=== PATIENT | male | born 1945 | race Caucasian/White ===

== ENCOUNTER 2024-07-01 08:47 | Emergency (ER) | payer MEDICARE ==
[2024-07-01 09:05] VITALS: RESP 20; TEMP 97.6
[2024-07-01] MEDS: BENADRYL 50 MG/ML IV ONE (09:22)
[2024-07-01] MEDS ORDERED: Pepcid 20 MG VIAL IV ONE (09:22)
[2024-07-01] MEDS ORDERED: BENADRYL 50 MG/ML ONE (09:22)
[2024-07-01] MEDS ORDERED: solu-CORTEF 250MG ONE (09:22)
[2024-07-01] MEDS: Pepcid 20 MG VIAL IV ONE (09:23)
[2024-07-01] MEDS: solu-CORTEF 250MG IV STA (09:23)
--- NOTE | 2024-07-01 09:33 | ERPHSYRPT ---
- History of Present Illness Time Seen by Provider: 07/01/24 09:18 Source: patient, family Exam Limitations: no limitations Patient Subjective Stated Complaint: PT states "Last night I started to have hives and get really itchy and this morning my lips were swelling." Triage Nursing Assessment: PT presented alert and oriented X 3, skin pwd. Pt lips swollen, red raised rash noted to abdomen, chest, and back, hips and legs Physician History: PT states "Last night I started to have hives and get really itchy and this morning my lips were swelling." Pt lips swollen, red raised rash noted to abdomen, chest, and back, hips and legs. Patient is unable to pinpoint the cause, exposure or food ingestion. Few months ago patient was diagnosed with diabetes but patient is trying to maintain his blood sugar with diet only. Patient hemoglobin A1c was 9.2 in January 2024. Timing/Duration: today Severity: moderate Associated Symptoms: denies symptoms Allergies/Adverse Reactions: No Known Drug Allergies Allergy (Verified 07/01/24 09:05) Home Medications: Losartan Potassium 50 mg [Cozaar 50 MG] 50 mg PO DAILY 07/01/24 [History] Hx Tetanus, Diphtheria Vaccination/Date Given: Yes Hx Influenza Vaccination/Date Given: Yes Hx Pneumococcal Vaccination/Date Given: Yes Immunizations Up to Date: No Travel Risk - International Travel Have you traveled outside of the country in past 3 weeks: No - Emerging Infectious Disease Are you exhibiting symptoms associated with any current EIDs: No - Review of Systems Constitutional: No Fever, No Chills Eyes: No Symptoms Ears, Nose, & Throat: Other (lip swelling) Respiratory: No Cough, No Dyspnea Cardiac: No Chest Pain, No Edema, No Syncope Abdominal/Gastrointestinal: No Abdominal Pain, No Nausea, No Vomiting, No Diarrhea Genitourinary Symptoms: No Dysuria Musculoskeletal: No Back Pain, No Neck Pain Skin: Rash Neurological: No Dizziness, No Focal Weakness, No Sensory Changes Psychological: No Symptoms Endocrine: No Symptoms All Other Systems: Reviewed and Negative - Past Medical History Pertinent Past Medical History: Yes Neurological History: No Pertinent History ENT History: No Pertinent History Cardiac History: Hypertension Respiratory History: No Pertinent History Endocrine Medical History: No Pertinent History Musculoskeletal History: No Pertinent History GI Medical History: No Pertinent History History: No Pertinent History Psycho-Social History: No Pertinent History Male Reproductive Disorders: No Pertinent History - Past Surgical History Past Surgical History: Yes Gastrointestinal: Appendectomy - Social History Smoking Status: Current every day smoker How long have you smoked: years Exposure to second hand smoke: Yes Drug Use: none - Social Determinants of Health Will the patient participate in the screening: Declined to provide - Nursing Vital Signs Nursing Vital Signs: Initial Vital Signs Temperature 97.6 F 07/01/24 08:58 Pulse Rate 110 H 07/01/24 08:58 Respiratory Rate 20 07/01/24 08:58 Blood Pressure 138/83 07/01/24 08:58 O2 Sat by Pulse Oximetry 98 07/01/24 08:58 Pain Scale Pain Intensity 0 - Physical Exam General Appearance: no apparent distress, alert Eye Exam: PERRL/EOMI, eyes nml inspection Ears, Nose, Throat Exam: normal ENT inspection, TMs normal, pharynx normal, moist mucous membranes Neck Exam: normal inspection, non-tender, supple, full range of motion Respiratory Exam: normal breath sounds, lungs clear, No respiratory distress Cardiovascular Exam: regular rate/rhythm, normal heart sounds, normal peripheral pulses Gastrointestinal/Abdomen Exam: soft, normal bowel sounds, No tenderness, No mass Back Exam: normal inspection, normal range of motion, No CVA tenderness, No vertebral tenderness Extremity Exam: normal inspection, normal range of motion, pelvis stable Neurologic Exam: alert, oriented x 3, cooperative, normal mood/affect, nml cerebellar function, nml station & gait, sensation nml, No motor deficits Skin Exam: normal color, warm, dry, rash Lymphatic Exam: No adenopathy SpO2: 97 - Course Nursing assessment & vital signs reviewed: Yes Ordered Tests: Medication Summary Discontinued Medications Generic Name Dose Route Start Last Admin Trade Name Zafarq PRN Reason Stop Dose Admin Diphenhydramine HCl 25 mg 07/01/24 09:17 Diphenhydramine Hcl 50 Mg/Ml Vial IV 07/01/24 09:18 STAT ONE Famotidine 20 mg 07/01/24 09:16 Famotidine 20 Mg/1 Vial IV 07/01/24 09:17 STAT ONE - Progress Progress: unchanged Progress Note: 07/01/24 09:42 On further history, patient has diabetes diagnosed for 5 months ago at that time hemoglobin A1c was 9.2. Patient has opted not to take any medication and control with diet. Initially patient blood sugars were running around 300 now according to his after diet change it is running in 1 5160 range. I informed and educated patient and his about diabetes control more aggressively, as patient already has a high blood pressure problem which can cause kidney damage heart damage stroke and eye damage. At this point of time they want to see stay on diet control. I advised them to follow-up with the primary care physician for further aggressive care of diabetes and blood pressure. Counseled pt/family regarding: diagnosis, need for follow-up Medical Desision Making - Independent Historian Additional History obtained from: Spouse - Diagnostic Testing Diagnostic test were ordered, analyzed, and reviewed by me: No - Risk of complications Minimal Risk: Minimal risk of morbidity - Departure Departure Disposition: Home Clinical Impression: Allergic urticaria Condition: Stable Critical Care Time: No Referrals: GARDENIA ALBARRAN MD [Primary Care Provider] - Follow up/PCP as directed Instructions: Hives, Allergic Reaction ED Additional Instructions: Discharge/Care Plan GARY CAMILO was seen on 07/01/24 in the Emergency Room. The patient was counseled regarding Diagnosis,Lab results, Imaging studies, need for follow up and when to return to the Emergency Room. Prescriptions given: Discharge Note I have spoken with the patient and/or caregivers. I have explained the patient's condition, diagnosis and treatment plan based on the information available to me at this time. I have answered the patient's and/or caregiver's questions and addressed any concerns. The patient and/or caregivers have as good understanding of the patient's diagnosis, condition and treatment plan as can be expected at this point. The vital signs have been stable. The patient's condition is stable and appropriate for discharge from the emergency department. The patient will pursue further outpatient evaluation with the primary care physician or other designated or consulting physician as outlined in the discharge instructions. The patient and/or caregivers are agreeable to this plan of care and follow-up instructions have been explained in detail. The patient and/or caregivers have received these instruction. The patient/and or caregivers are aware that any significant change in condition or worsening of symptoms should prompt an immediate return to this or the closest emergency department or call 911. GARY CAMILO was seen on 07/01/24 n the Emergency Room. At that time you were treated for an emergent condition, during your visit Laboratory, Radiology and/or other procedures may have been ordered. It is very important that you follow-up with your Primary Care Physician GARDENIA ALBARRAN within the next 24- 48 hours to review your Emergency Room visit and the final results of testing that was ordered. Some test results such as Urine Cultures, Blood Cultures, and other cultures if ordered will not be finalized for 24-48 hours. If you do not have a Primary Care Provider please call the medical records department at [phone] ext [phone] to obtain a copy of your results or you may sign into our patient portal to obtain these results by visiting us @ [email or web address] and completing the following steps: 1. Click on the Patient Portal link 2. Click the Patient Self Enrollment Link to complete the enrollment form and entering your 3. Once the enrollment form is completed you will receive an email with a temporary ID and password at the email address you provided. 4. Next choose a user name and password. Your user name must be at least 4 characters long and your password must be at least 4 characters long. 5. Choose a security question from the list and provide your answer to the question. If you already have signed into the Health Portal you may access your Health Care Information 05/04 by the following steps: 1. Login to our website @ [email or web address] 2. Enter your original user name and password. FAQS The [facility] Health Portal is an online tool that contains your Lab Results, Radiology Reports, Visit History, Discharge Instructions and Health Summary Lab and Radiology Results will not be available for 72 hours on the portal. The Portal is a secure site, passwords are encryted and URLs are re-written so they cannot be copied and pasted. You and authorized family members are the only ones who can access your Portal. Also there is a timeout feature that protects your information if you leave the Portal page open. If you have technical difficulty please use the Contact Us link on the page this will allow you to submit any questions you have regarding the Portal or you may contact the Medical Record Department at [phone] ext [phone]. Prescriptions: Methylprednisolone Packet [Medrol Dosepack] 4 mg PO UD #21 packet
[2024-07-01 09:42] VITALS: BP 142/73; PULSE 98
[2024-07-01 09:44] VITALS: O2SAT 97
== END 2024-07-01 10:16 | disposition home or self-care (01) ==
LOC: ED 08:47
DX: L50.0 Allergic urticaria (principal); I10 Essential (primary) hypertension; E11.9 Type 2 diabetes mellitus without complications; Z79.52 Long term (current) use of systemic steroids; Z79.899 Other long term (current) drug therapy; Z72.0 Tobacco use
CPT/HCPCS: 36000; 96374; 96375; 99283; J1200; J1720